=== PATIENT | female | born 1985 | race Caucasian/White ===

== ENCOUNTER → 2017-09-04 14:12 | Outpatient (CLI) | payer BC, SELFPAY ==
[2017-09-04 16:18] LABS: Basophils % 0.3 % (0.1-2.0); Eosinophils # 0.1 K/mm3 (0.0-0.4); Eosinophils % 1.7 % (0.1-12.0); Hematocrit 40.2 % (37.0-47.0); Hemoglobin 13.5 g/dL (12.2-16.2); Lymphocytes # 1.2 K/mm3 (0.7-4.5); Mean Corpuscular HGB Conc 33.5 g/dL (31.8-35.4); Mean Corpuscular Hemoglobin 30.4 pg (27.0-31.2); Mean Corpuscular Volume 90.9 fl (81-99); Mean Platelet Volume 7.6 fl (7.4-10.4); Monocytes # 0.3 K/mm3 (0.1-1.0); Monocytes % 5.5 % (1.7-9.3); Neutrophils # 4.2 K/mm3 (1.8-7.8); Neutrophils % 72.5 % (37.0-80.0); Platelet Count 243 K/mm3 (142-424); Red Blood Count 4.42 M/mm3 (4.20-5.40); Red Cell Distribution Width 12.8 % (11.5-17.5); White Blood Count 5.9 K/mm3 (4.8-10.8)
[2017-09-06 18:23] LABS: Hepatitis B Surface Antigen Negative (Negative); Hepatitis C Antibody <0.1 s/co ratio (0.0-0.9); Rapid Plasma Reagin Ab Titer Non Reactive (NonRea<1:1); Rubella Antibodies, IgG 3.88 index (Immune >0.99)
== END ==
PROVIDERS: Family Provider Nurse Practitioner Obstetrics & Gynecology; Visit Provider Nurse Practitioner Obstetrics & Gynecology
DX: Z34.90 Encounter for supervision of normal pregnancy, unspecified, unspecified trimester (principal)
CPT/HCPCS: 36415; 85025; 86592; 86762; 86850; 87340; 87380

== ENCOUNTER → 2017-09-11 13:37 | Outpatient (CLI) | payer BC, SELFPAY ==
--- NOTE | 2017-09-11 13:48 | US_ITS ---
US OB transvaginal HISTORY: Evaluate gestational age ITS.REASON: DATES ORDERING PHYSICIAN: Aleksander Esteban MD PATIENT AGE: 32 years COMPARISON: None FINDINGS: An intrauterine gestational sac is present with a pole with a crown-rump length of 4.50cm correlating to gestational age of 11w3d. heart tones are present with an FHR of 132 bpm's. The amnion and chorion have not yet fused. Adnexa: Left ovary unremarkable. Right ovary not visualized. IMPRESSION: Live intrauterine gestation at 11 weeks 3 days. Estimated due date by ultrasound is 03/30/2018
== END ==
PROVIDERS: Family Provider Nurse Practitioner Obstetrics & Gynecology; Visit Provider Nurse Practitioner Obstetrics & Gynecology
DX: O26.841 Uterine size-date discrepancy, first trimester (principal)
CPT/HCPCS: 76830

== ENCOUNTER → 2017-11-13 14:00 | Outpatient (CLI) | payer BC, SELFPAY ==
--- NOTE | 2017-11-13 14:08 | US_ITS ---
US OB /maternal detail: INDICATION: ITS.REASON: US OB Complete ORDERING PHYSICIAN: Aleksander Esteban MD PATIENT AGE: 32 years TECHNIQUE: ultrasound transabdominal scanning. COMPARISON: No previous relevant studies. FINDINGS: Single viable intrauterine gestation. Breech position Currently. Oblique. Breech position with spine is directed anteriorly Placenta: Posterior. placenta grade 1. No previa The cervix appears satisfactory. Closed and measuring 4 cm in length. Complete survey performed and was unremarkable on the submitted images as in PACS. No discrete anomalies identified on survey imaging by technologist. Active fetus.Three-vessel cord with satisfactory umbilical cord insertion. Survey of brain & ventricles. In posterior fossa unremarkable Face and neck survey unremarkable. Nasion intact Diaphragm and chest views unremarkable. 4- chamber heart imaged. Cine loop included. LVOT imaged Abdomen: Both kidneys noted and unremarkable. Stomach noted and satisfactory. Spine: Survey of the spine satisfactory with no anomalies identified nor imaged. Both arms and legs noted. Appears to be a female fetus Amniotic Fluid: Adequate. Maternal adnexa: No significant findings encountered. Measurements : Average ultrasound age 20 week 2 day... Gestational Age 20 week 3 day. Based on LMP 06/23/2017 Estimated due date by ultrasound age 803/31/2018. Estimated weight 338 g +/- 49 g BPD = 20 week 3 day OFD = 20 week 6 day HC = 20 week 0 day AC = 30 week 3 day FL = 20 week 1 day Heart Rate = 144 BPM Cerebellum = 20 week 2 day 20 Humerus = 20 week 3 day HC/AC = 1.15.(1.09-1.26.) CI = 77. % (70-86%). FL/BPD is 68%. FL/AC is 21%. IMPRESSION: 20 week 2 day average ultrasound age breech position Posterior placenta with no previa . Anatomical survey of unremarkable & WNL
== END ==
PROVIDERS: Family Provider Nurse Practitioner Obstetrics & Gynecology; PCP Nurse Practitioner Obstetrics & Gynecology; Visit Provider Nurse Practitioner Obstetrics & Gynecology
DX: Z36.0 Encounter for antenatal screening for chromosomal anomalies (principal)
CPT/HCPCS: 76811

== ENCOUNTER 2017-11-25 10:37 | Outpatient (CLI) | payer BC, SELFPAY ==
[2017-11-25 10:51] VITALS: BP 108/69; PULSE 90; RESP 18; TEMP 36.6; O2SAT 98; BMI 31.2
[2017-11-25 10:52] VITALS: BMI 31.2
[2017-11-25 11:11] LABS: Microscopic, Urine URINE MICROSCOPIC (MICROSCOPIC)
[2017-11-25 11:17] LABS: Appearance,Urine SL CLOUDY (Clear); Bilirubin,Urine Negative (Negative); Blood, Urine Negative (Negative); Color,Urine YELLOW (Yellow); Glucose,Urine (UA) Negative (Negative); Ketones,Urine Negative (Negative); Leukocyte Esterase,Urine 2+ (Negative); Nitrate,Urine Negative (Negative); Protein,Urine Negative (Negative); Specific Gravity, Urine 1.015 (1.005-1.030); Urobilinogen,Urine 0.2 EU/dl (0.2)
[2017-11-25 12:19] LABS: Bacteria,Urine 2+ /lpf
== END 2017-11-25 12:10 | disposition home or self-care (01) ==
LOC: OBOUT 10:42 → OB 10:43
PROVIDERS: PCP Nurse Practitioner Obstetrics & Gynecology; Referring Provider Nurse Practitioner Obstetrics & Gynecology; Visit Provider Nurse Practitioner Obstetrics & Gynecology
DX: O26.92 Pregnancy related conditions, unspecified, second trimester (principal); Z3A.21 21 weeks gestation of pregnancy; R10.32 Left lower quadrant pain; R60.0 Localized edema
CPT/HCPCS: 59025; 81001; 87086

== ENCOUNTER → 2018-03-05 18:03 | Outpatient (REF) | payer BC, SELFPAY | LOC: LAB 18:03 | PROVIDERS: Visit Provider Nurse Practitioner Obstetrics & Gynecology | DX: Z34.90 Encounter for supervision of normal pregnancy, unspecified, unspecified trimester (principal) | CPT/HCPCS: 86403 ==

== ENCOUNTER 2018-03-19 04:11 | Outpatient (CLI) | payer BC, SELFPAY ==
[2018-03-19 04:19] VITALS: BMI 33.6
[2018-03-19 04:33] VITALS: BP 105/69; PULSE 76; RESP 18; TEMP 36.6; O2SAT 98; BMI 33.6
[2018-03-19 04:35] LABS: Appearance,Urine CLEAR (Clear); Bilirubin,Urine Negative (Negative); Blood, Urine TRACE-L (Negative); Color,Urine YELLOW (Yellow); Glucose,Urine (UA) Negative (Negative); Ketones,Urine Negative (Negative); Leukocyte Esterase,Urine Negative (Negative); Nitrate,Urine Negative (Negative); PH,Urine 6.5 (5.0-8.5); Protein,Urine Negative (Negative); Specific Gravity, Urine 1.025 (1.005-1.030); Urobilinogen,Urine 0.2 EU/dl (0.2)
[2018-03-19 04:36] LABS: Microscopic, Urine URINE MICROSCOPIC (MICROSCOPIC)
[2018-03-19 04:41] LABS: Bacteria,Urine 1+ /lpf; Mucus,Urine 1+ /lpf; Squamous Epithelial Cell,Urine Occasional #/hpf (0-5); WBC,Urine Occasional #/hpf (0-3)
== END 2018-03-19 07:35 | disposition home or self-care (01) ==
LOC: OBOUT 04:12 → OB 04:13
PROVIDERS: Visit Provider Obstetrics & Gynecology
DX: O47.03 False labor before 37 completed weeks of gestation, third trimester (principal); Z3A.38 38 weeks gestation of pregnancy
CPT/HCPCS: 59025; 81001

== ENCOUNTER 2018-03-28 04:56 | Outpatient (CLI) | payer BC, SELFPAY ==
[2018-03-28 05:06] VITALS: BMI 34.0
[2018-03-28 05:14] LABS: Appearance,Urine CLEAR (Clear); Bilirubin,Urine Negative (Negative); Blood, Urine Negative (Negative); Color,Urine YELLOW (Yellow); Glucose,Urine (UA) Negative (Negative); Ketones,Urine Negative (Negative); Leukocyte Esterase,Urine TRACE (Negative); Microscopic, Urine URINE MICROSCOPIC (MICROSCOPIC); Nitrate,Urine Negative (Negative); PH,Urine 7.5 (5.0-8.5); Protein,Urine Negative (Negative); Specific Gravity, Urine 1.015 (1.005-1.030); Urobilinogen,Urine 0.2 EU/dl (0.2)
[2018-03-28 05:18] VITALS: BP 119/82; PULSE 69; RESP 18; TEMP 36.6; O2SAT 96; BMI 34.0
[2018-03-28 05:18] LABS: Bacteria,Urine 1+ /lpf; Squamous Epithelial Cell,Urine 20-50 #/hpf (0-5)
== END 2018-03-28 08:00 | disposition home or self-care (01) ==
LOC: OBOUT 04:58 → OB 04:59
PROVIDERS: PCP Nurse Practitioner Obstetrics & Gynecology; Visit Provider Obstetrics & Gynecology
DX: O60.03 Preterm labor without delivery, third trimester (principal); Z3A.39 39 weeks gestation of pregnancy
CPT/HCPCS: 59025; 81001

== ENCOUNTER 2018-04-04 05:23 | Inpatient (IN) ==
[2018-04-04 06:36] LABS: Amphetamine/Metha Screen,Urine Negative ng/mL (<1000); Barbiturates Screen,Urine Negative ng/mL (<200); Benzodiazepines Screen,Urine Negative ng/mL (<200); Cannabinoid Screen,Urine Negative ng/mL (<50); Cocaine Screen,Urine Negative ng/mL (<300); Methadone Screen,Urine Negative ng/mL (<300); Opiate Screen,Urine Negative ng/mL (<300); Phencyclidine Screen,Urine Negative ng/mL (<25)
[2018-04-04 06:49] LABS: Basophils % 0.3 % (0.1-2.0); Eosinophils # 0.2 K/mm3 (0.0-0.4); Eosinophils % 2.1 % (0.1-12.0); Hematocrit 34.9 % (37.0-47.0); Hemoglobin 12.1 g/dL (12.2-16.2); Lymphocytes # 2.3 K/mm3 (0.7-4.5); Lymphocytes % 29.7 K/mm3 (10-50); Mean Corpuscular HGB Conc 34.6 g/dL (31.8-35.4); Mean Corpuscular Hemoglobin 32.6 pg (27.0-31.2); Mean Corpuscular Volume 94.2 fl (81-99); Mean Platelet Volume 7.7 fl (7.4-10.4); Monocytes # 0.4 K/mm3 (0.1-1.0); Monocytes % 4.9 % (1.7-9.3); Neutrophils # 4.9 K/mm3 (1.8-7.8); Neutrophils % 62.9 % (37.0-80.0); Platelet Count 215 K/mm3 (142-424); Red Blood Count 3.71 M/mm3 (4.20-5.40); Red Cell Distribution Width 13.6 % (11.5-17.5); White Blood Count 7.7 K/mm3 (4.8-10.8)
--- NOTE | 2018-04-04 07:35 | History & Physical Report ---
OB - H&P: HPI Antepartum - History of Present Illness Chief complaint: Postterm History of present illness: She is a 32-year-old 7 para 4 aborta 2 who is 40s weeks gestational age. She has had lots of contractions that remained 4 cm. As a result of that she is admitted for augmentation of labor. She is also had decreased from the last few days. - History of Present Criteria for establishing EDC:: LMP confirmed by 1st trimester US care: good care Ultrasounds: normal 1st trimester US, normal mid trimester US Obstetrical complications: none Medical complications: none [facility] History I have reviewed the patient's past medical history: Yes Medical History: Reports:: Asthma Denies:: Anxiety, Cancer, Depression, Diabetes Mellitus Type 1, Diabetes Mellitus Type 2, Hypertension, MRSA, Seizures Other Surgeries: Yes: Hernia Repair (umbilical x2). No: Amputation: No Fractures: No - *Social History Educational Level: Completed High School Smoking Status: Never smoker Alcohol Intake: former Alcohol Intake Frequency:: other Substance Use Type: denies use Occupational Status: unemployed Household Members: spouse, children - Psychiatric History Expresses thoughts of harming self/others: None Suicide Plan Description: No Plan Pschychiatric History:: Denies:: Anxiety, Depression *Family Hx:: Cancer, Diabetes, Thyroid Disorder, Heart Attack, Stroke, Kidney Disease, Hypertension, Asthma, Coronary Artery Disease Para: 4 Review of Systems - Review of Systems Review of systems:: pertinent systems reviewed and negative unless documented below Meds Home Medications Medication Instructions Recorded Confirmed Type 1 tab PO QDAY 09/04/17 11/25/17 History vitamin,calcium,zeymngqe-biwg-mlbrf acid tablet Ferrous Sulfate 325 mg PO DAILY 11/25/17 11/25/17 History Allergies Allergy/AdvReac Type Severity Reaction Status Date / Time No Known Allergies Allergy Verified 04/02/18 10:11 OB - H&P: Exam - Physical Exam Vital signs: Pulse Resp BP 70 18 108/61 04/04/18 06:41 04/04/18 06:41 04/04/18 06:41 - Constitutional no acute distress - Routine HEENT Exam Head: Present: normocephalic Eye: Present: EOMI, PERRL ENT: Present: mucous membranes moist - Routine Neck Exam Present: supple, full ROM - Routine Respiratory Exam Absent: accessory muscle use (good air entry bilaterally), respiratory distress , wheezes, crackles - Routine Cardiovascular Exam Present: RRR. Absent: murmur - Routine Abdominal Exam Present: soft, normoactive bowel sounds. Absent: tenderness, distended, guarding - Routine Rectal Exam Patient deferred: visual exam, digital exam - Routine Exam Patient deferred: external exam, groin exam, perineal exam - Routine Extremities Exam Present: full ROM. Absent: cyanosis, edema - Routine Skin Exam Present: intact. Absent: cyanosis - Routine Neurological Exam Present: alert, oriented X3 - Routine Psychiatric Exam Present: normal affect OB - Results - Labs Labs: Short CBC 04/04/18 Range/Units 06:00 WBC 7.7 (4.8-10.8) K/mm3 Hgb 12.1 L (12.2-16.2) g/dL Hct 34.9 L (37.0-47.0) % Plt Count 215 (142-424) K/mm3 OB - A/P Antepartum (1) Normal delivery at term Current visit: Yes Status: Acute (2) Post term over 40 weeks Current visit: Yes Status: Acute - Additional Plan Planning to breastfeed?: Yes Plan: induction Additional Information:: 3-4 cm dilated has been like this for the last few weeks. She is having a few contractions. She had decreased femur cervix is 3-4 cm 75% -2. We will go ahead and start oxytocin this morning and expect a vaginal delivery.
--- NOTE | 2018-04-04 09:43 | Progress Note ---
Labor Note - Subjective: Date: 04/04/18 Time: 09:42 regular contraction - Objective: NST:: Reactive Contractions:: every 2-3 minutes Cervical Dilation:: 4 Effacement:: 75% Station: -2 Membranes: intact - Fetus: Monitoring?: Yes monitoring type:: External - Assessment: Labor progressing?: Yes Cephalopelvic disproportion?: No Patient Problems: All Active Problems Normal delivery at term (Acute) Post term over 40 weeks (Acute) (Acute) - Plan: Anesthesia for epidural?: No Continue to labor down?: Yes Plan for ?: No Continue to monitor?: Yes Start pushing?: No
--- NOTE | 2018-04-04 11:45 | Progress Note ---
Labor Note - Subjective: Date: 04/04/18 Time: 11:44 regular contraction - Objective: NST:: Reactive Contractions:: every 2-3 minutes Cervical Dilation:: 4-5 Effacement:: 90% Station: -2 Membranes: intact - Fetus: Monitoring?: Yes monitoring type:: External - Assessment: Labor progressing?: Yes Cephalopelvic disproportion?: No Patient Problems: All Active Problems Normal delivery at term (Acute) Post term over 40 weeks (Acute) (Acute) - Plan: Anesthesia for epidural?: No Continue to labor down?: Yes Plan for ?: No Continue to monitor?: Yes Start pushing?: No
--- NOTE | 2018-04-04 14:05 | Progress Note ---
Labor Note - Subjective: Date: 04/04/18 Time: 14:04 regular contraction - Objective: NST:: Reactive Contractions:: every 2-3 minutes Cervical Dilation:: 6 Effacement:: 100% Station: -2 Membranes: artificially ruptured Comment:: Clear fluid - Fetus: Monitoring?: Yes monitoring type:: Internal and External Comment:: I inserted a scalp clip - Assessment: Labor progressing?: Yes Cephalopelvic disproportion?: No Patient Problems: All Active Problems Normal delivery at term (Acute) Post term over 40 weeks (Acute) (Acute) - Plan: Anesthesia for epidural?: Yes Continue to labor down?: Yes Plan for ?: No Continue to monitor?: Yes Start pushing?: No
--- NOTE | 2018-04-04 14:10 | Progress Note ---
[facility] Anesthesia Checklist - Patient Identification Patient Identification: Arm Band, Verbal (Name & ) - Structural Data Admitted From: Inpatient Planned Operative Procedure/s: Labor Epidural Consent for Planned Operative Procedure(s) Verified: Yes Verified Documents: Surgical Consent, History and Physical - Additional verifications Patient : Yes Anesthesia Reactions: No - Airway Assessment C-Spine Mobility Assessed: Yes TMJ Mobility Assessed: Yes Dentition: Good Dentition - Neurological Assessment Level of Consciousness: Awake Hx Seizures: No Numbness or tingling in extremities: No - Anesthesia Plan Anesthesia Risk discussed: Yes Anesthesia Plan: Verified ASA Class: II Anesthesia Type: Epidural [facility] Anesthesia HX I have reviewed the patient's past medical history: Yes Medical History: Reports:: Asthma Denies:: Anxiety, Cancer, Depression, Diabetes Mellitus Type 1, Diabetes Mellitus Type 2, Hypertension, MRSA, Seizures Other Surgeries: Yes: Hernia Repair (umbilical x2). No: Amputation: No Fractures: No *Family Hx:: Cancer, Diabetes, Thyroid Disorder, Heart Attack, Stroke, Kidney Disease, Hypertension, Asthma, Coronary Artery Disease
--- NOTE | 2018-04-04 16:20 | Progress Note ---
Labor Note - Subjective: Date: 04/04/18 Time: 16:19 regular contraction - Objective: NST:: Reactive Contractions:: every 2-3 minutes Cervical Dilation:: 8 Effacement:: 100% Station: 0 Membranes: artificially ruptured - Fetus: Monitoring?: Yes monitoring type:: Internal Comment:: She already had a scalp clip and I have inserted an IUPC. - Assessment: Labor progressing?: Yes Cephalopelvic disproportion?: No Patient Problems: All Active Problems Normal delivery at term (Acute) Post term over 40 weeks (Acute) (Acute) - Plan: Anesthesia for epidural?: Yes Continue to labor down?: Yes Plan for ?: No Continue to monitor?: Yes Start pushing?: No
--- NOTE | 2018-04-04 18:07 | Procedure Note ---
- Delivery Note Delivery Date:: 04/04/18 Delivery Time:: 17:51 Anesthesia Type: Epidural Was labor medically induced?: Yes Induction method: per pitocin protocol Gestational age (weeks): 40 delivered prior to 39 weeks?: No Gender: Female at 1 minute: 9 at 5 minutes: 9 AF:: Clear fluid LAC or MLE?: LAC Delivery Procedure:: She is a 32-year-old 7 para 4 abortus 2 who was 40+5 weeks gestational age. As result of that we brought her in for induction of labor postdates. She was started on IV oxytocin and under labor epidural progress to full dilations. She delivered spontaneously a live born female child at 5:51 PM in the evening of April 04, 2018. I deliver the head the anterior shoulder then delivered followed by the rest of the body atraumatically. The baby cried spontaneously and was vigorous. We allowed the cord to continue to pulsate for 1 minute. The cord was then doubly clamped and cut and the infant was placed on the mother's abdomen for further care. The nurses assigned Apgars of 9 at 1 minute and 9 at 5 minutes. We did obtain cord blood as well as cord pH. The pH was 7.32. She weighed 8 lbs. 3 oz. and was 19-1/2 inches long. She had a small vaginal laceration that was repaired with interrupted 3-0 Vicryl repeat suture. Using gentle traction on the cord and counter traction on the fundus I was able to easily deliver the placenta intact. He had a normal three-vessel cord. She has a positive blood. She is rubella immune and was group B Streptococcus negative. She plans to breast-feed. Her computer tech is Dr. Butler. Estimated blood loss was approximately 400 cc. Laceration:: vaginal Placental Delivery Description: Spontaneous
[2018-04-05 06:42] LABS: Hematocrit 33.8 % (37.0-47.0); Hemoglobin 11.2 g/dL (12.2-16.2)
--- NOTE | 2018-04-05 10:55 | Progress Note ---
Internal Medicine - PN: Subj *Date: 04/05/18 *Time: 10:54 Interval history: She continues to do well. She is eating and drinking and ambulating. She is breast-feeding. Her lochia is normal. Exam Vital signs and Labs for Last 24 Hours: Temp Pulse Resp BP Pulse Ox 97.9 F 68 18 104/59 95 04/05/18 08:18 04/05/18 08:18 04/05/18 08:18 04/05/18 08:18 04/05/18 08:18 Laboratory Results - last 24 hr 04/04/18 18:03: Cord ABG pH 7.32 L 04/05/18 06:15: Hgb 11.2 L, Hct 33.8 L I & O for Last 24 hours: Intake & Output 04/02/18 04/03/18 04/04/18 04/05/18 11:59 11:59 11:59 11:59 Weight 202 lb - Constitutional no acute distress - *Routine HEENT Exam Head: Present: normocephalic - *Routine Neck Exam Present: supple, full ROM - *Routine Skin Exam Present: intact (good color) - Routine Psychiatric Exam Present: normal affect Assessment and Plan (1) Normal delivery at term Current visit: Yes Status: Acute Category: Medical Code(s): O80 - Encounter for full-term uncomplicated delivery (2) Post term over 40 weeks Current visit: Yes Status: Acute Category: Medical Code(s): O48.0 - Post- term - Assessment and plan all Dx Assessment and Plan for all problems:: She is doing well. We will plan to send her home tomorrow.
[2018-04-06 09:29] VITALS: BP 110/58
--- NOTE | 2018-04-06 10:23 | Discharge Summary ---
General - General Admission date:: 04/04/18 Discharge date: 04/06/18 HPI HPI: She is a 32-year-old 7 now para 5 abortus 2 who was 40 and 5 weeks gestational age. Since she was postdates we elected to induce her labor. Hospital Course Hospital Course: She was started on IV oxytocin had her membranes ruptured. She progressed in her labor epidural to full dilation and delivered spontaneously a live born female child at 5:51 PM in the afternoon of April 04, 2018. The baby weighed 8 lbs. 3 oz. and was 19-1/2 inches long. She had Apgars of 9 at 1 minute and 9 at 5 minutes. She is breast-feeding. She has a positive blood, she is rubella immune and was group B streptococcus negative. Her microbiology lab technician is Dr. Butler. Her graph she is discharged home to follow-up with me in approximately 2 weeks time. She will continue with her vitamins and iron. Objective Vital signs: Temp Pulse Resp BP Pulse Ox 97.7 F 72 17 110/58 97 04/06/18 08:00 04/06/18 08:00 04/06/18 08:00 04/06/18 08:00 04/05/18 11:30 no acute distress DS: Diagnosis - Discharge Diagnosis (1) Normal delivery at term Status: Acute (2) Post term over 40 weeks Status: Acute Discharge Plan - Patient Discharge Instructions ACTIVITY: No heavy lifting DIET: continue same diet Patient Instructions: [facility] Post Discharge Instructions - Follow up Plan Disposition: Home, Self-Longterm Medications: Home Medications Medication Instructions Recorded Confirmed Type 1 tab PO DAILY 09/04/17 04/04/18 History vitamin,calcium,lkckuocd-dbgh-ivpbi acid tablet Ferrous Sulfate 325 mg PO DAILY 11/25/17 04/04/18 History Prescriptions/Medication Reconciliation: Continue vitamin,calcium,kixwuelv-dbfe-qlchn acid tablet 1 tab PO DAILY Ferrous Sulfate 325 mg PO DAILY
== END 2018-04-06 11:45 | disposition home or self-care (01) ==
LOC: OB 05:23
PROVIDERS: ADMIT Obstetrics & Gynecology; ATTEND Nurse Practitioner Obstetrics & Gynecology

== ENCOUNTER → 2018-05-26 08:38 | Outpatient (CLI) | payer BC, SELFPAY ==
--- NOTE | 2018-05-26 08:40 | US_ITS ---
US gallbladder HISTORY: Right upper quadrant pain, nausea, vomiting, diarrhea ITS.REASON: US Gallbladder- Abdominal Pain ORDERING PHYSICIAN: Aleksander Esteban MD PATIENT AGE: 32 years Comparison: None FINDINGS: PANCREAS: Unremarkable. No obvious mass or abnormal fluid collection. No ductal dilatation LIVER: No focal liver lesions demonstrated. Homogeneous echogenicity. No intrahepatic biliary ductal dilatation evident. There is appropriate directional blood flow within a nondilated portal vein RIGHT KIDNEY: Unremarkable. Normal size and echogenicity. No hydronephrosis GALLBLADDER: No gallstones, gallbladder wall thickening, pericholecystic fluid, or biliary dilatation. IMPRESSION: Negative gallbladder/right upper quadrant ultrasound
== END ==
PROVIDERS: Family Provider Nurse Practitioner Obstetrics & Gynecology; PCP Nurse Practitioner Obstetrics & Gynecology; Visit Provider Nurse Practitioner Obstetrics & Gynecology
DX: R10.9 Unspecified abdominal pain (principal)
CPT/HCPCS: 76705

== ENCOUNTER 2020-07-11 11:51 | Emergency (ER) | payer BC, SELFPAY ==
[2020-07-11 12:30] VITALS: BP 121/81; PULSE 80; RESP 14; TEMP 36.9; O2SAT 99; BMI 25.7
--- NOTE | 2020-07-11 12:34 | HMH.EDUTC ---
[facility] [place] Impression: Bronchitis, Exposure to COVID-19 virus, Viral syndrome Disposition: Home, Self-Care Condition on Discharge: Good Instructions: Preventing the Spread of Coronavirus Discharge Instructions Additional Instructions: Drink plenty of fluids. Take tylenol or ibuprofen for pain or fever. Take the medications as directed. Follow up with your regular doctor. GO TO THE ER FOR ANY WORSENING SYMPTOMS Prescriptions: Albuterol Sulfate [Albuterol Sulfate Hfa] 2 puffs IH Q6HP PRN 30 Days #1 hfa.aer.ad PRN Reason: Shortness Of Breath Transmission Status: Received by [id number] Brompheniramine/Pseudoephed/Dm [Bromfed Dm Cough Syrup] 5 ml PO Q6HP PRN #240 syrup PRN Reason: Cough Transmission Status: Received by [facility] Azithromycin [Z-Gregorio 250mg Tab*] 250 mg PO UD DOSE PK #6 tab Transmission Status: Received by [facility] Referrals: Alecia Mendoza [Primary Care Provider] - Time of Disposition: 12:51 Medical Decision Making - Medical Records Medical records reviewed: No: I reviewed the patient's medical records. - Pasha Inquiry Pt receiving controlled substance: No Vital Signs: 07/11/20 12:30 07/11/20 13:00 Temperature 98.4 F 98.4 F Temperature Source Oral Pulse Rate 80 Pulse Rate [Right Brachial] 80 Respiratory Rate 14 14 Blood Pressure 121/81 Blood Pressure [Right Arm] 121/81 Blood Pressure Mean [Right Arm] 94 Blood Pressure Source [Right Arm] Automatic Cuff Blood Pressure Position [Right Arm] Sitting 02 Sat by Pulse Oximetry 99 Oxygen Delivery Method Room Air Orders (Tests/Meds): ORDERS Category Date Time Status Covid-19 Nasal PCR Sendout Dagoberto Routine Lab 07/11/20 12:[address] [facility] [place] - General Stated complaint: covid exposure Time Seen by Provider: 07/11/20 12:35 - History of Present Illness Provider Complaint: She states that for the past 3 days she has had cough, chest congestion, chest tightness, low grade fever, and body aches. - Related Data Previous Rx's Medication Instructions Recorded Nitrofurantoin Monohyd/M-Cryst 100 mg PO DAILY 5 Days #10 cap 08/30/19 [Macrobid 100 mg Capsule] Ondansetron [Zofran 4mg ODT] 4 mg PO Q8HP PRN #10 tab.rapdis 08/30/19 Phenazopyridine HCl [Pyridium 200 pow PO TID #6 tab 08/30/19 200mg Tablet] Albuterol Sulfate [Albuterol 2 puffs IH Q6HP PRN 30 Days #1 07/11/20 Sulfate Hfa] hfa.aer.ad Azithromycin [Z-Gregorio 250mg Tab*] 250 mg PO UD DOSE PK #6 tab 07/11/20 Brompheniramine/Pseudoephed/Dm 5 ml PO Q6HP PRN #240 syrup 07/11/20 [Bromfed Dm Cough Syrup] Allergies Allergy/AdvReac Type Severity Reaction Status Date / Time No Known Allergies Allergy Verified 05/28/18 15:11 [facility] History - Hepatitis A Screen Attestation statement:: This patient has been screened for Hepatitis A risk factors. I have reviewed the patient's past medical history: Yes Medical History: Reports:: Asthma Denies:: Anxiety, Cancer, Depression, Diabetes Mellitus Type 1, Diabetes Mellitus Type 2, Hypertension, MRSA, Seizures Other Surgeries: Yes: Hernia Repair. No: Amputation: No Fractures: No - Social History Smoking Status: Never smoker Alcohol Intake: never Alcohol Intake Frequency:: other Substance Use Type: denies use Occupational Status: unemployed Household Members: spouse, children - Psychiatric History Pschychiatric History:: Denies:: Anxiety, Depression Family Hx:: Cancer, Diabetes, Thyroid Disorder, Heart Attack, Stroke, Kidney Disease, Hypertension, Asthma, Coronary Artery Disease RESEARCH SOFTWARE ENGINEER history: no No RESEARCH SOFTWARE ENGINEER history, no Non-contributory, no Spontaneous , no Therapeutic , no Cervical Cancer, no Abnormal Uterine Bleeding, no Ovarian Cancer, no dysfunctional uterine bleed, no Endometriosis, no Ectopic , no Polycystic Ovary Syndrome, no Uterine Fibroids, no Tubal Ligation, no , no Failure
[2020-07-11 13:00] VITALS: BP 121/81; PULSE 80; RESP 14; TEMP 36.9; O2SAT 99
[2020-07-13 15:20] LABS: Covid-19 Nasal PCR Sendout Lex Positive
--- NOTE | 2020-07-13 16:00 | PC.NURSE ---
CALLED PT TO LET HER KNOW THAT HER COVID TEST WAS POSITIVE
== END 2020-07-11 13:01 | disposition home or self-care (01) ==
PROVIDERS: Emergency Provider Nurse Practitioner Family; PCP Family Medicine
DX: U07.1 COVID-19 (principal); J45.909 Unspecified asthma, uncomplicated
CPT/HCPCS: 99201; U0004

== ENCOUNTER 2021-06-12 12:00 | Emergency (ER) | payer BC, SELFPAY ==
[2021-06-12 13:45] VITALS: BP 123/56; PULSE 67; RESP 20; TEMP 36.6; O2SAT 99; BMI 33.7
[2021-06-12 14:14] LABS: UTC Strep Screen (Rapid) Positive (Negative)
--- NOTE | 2021-06-12 14:28 | HMH.EDUTC ---
[facility] [place] Impression: Strep [place] Disposition: Home, Self-Care Condition on Discharge: Good Instructions: DI for Strep Throat Additional Instructions: Drink plenty of fluids. Take tylenol or ibuprofen for pain or fever. Take the medications as directed. Follow up with your regular doctor. GO TO THE ER FOR ANY WORSENING SYMPTOMS Throw your tooth brush away and get a new one. Prescriptions: Brompheniramine/Pseudoephed/Dm [Bromfed Dm Cough Syrup] 5 ml PO Q6HP PRN #240 ml PRN Reason: Cough Transmission Status: Received by [facility] Amoxicillin [Amoxicillin 500mg Tab] 500 mg PO TID 10 Days #30 tab Transmission Status: Received by [facility] predniSONE [Deltasone 10mg tablet] 10 mg PO BID 3 Days #6 tab Transmission Status: Received by [facility] Referrals: Provider,Referral, MD [Primary Care Provider] - Time of Disposition: 14:31 Medical Decision Making - Medical Records Medical records reviewed: No: I reviewed the patient's medical records. - Pasha Inquiry Pt receiving controlled substance: No Vital Signs: 06/12/21 13:45 06/12/21 14:36 Temperature 97.9 F 97.9 F Temperature Source Oral Pulse Rate 67 Pulse Rate [Right Brachial] 67 Respiratory Rate 20 20 Blood Pressure 123/56 L Blood Pressure [Right Arm] 123/56 L Blood Pressure Mean [Right Arm] 78 Blood Pressure Source [Right Arm] Automatic Cuff Blood Pressure Position [Right Arm] Sitting 02 Sat by Pulse Oximetry 99 Oxygen Delivery Method Room Air - Lab Data Lab results reviewed: Yes: I reviewed the patient's lab results. Lab Results 06/12/21 14:12: Strep Scn Rapid Clinic Positive A [facility] [place] - General Stated complaint: exposure to strep, symptoms Time Seen by Provider: 06/12/21 14:28 Mode of Arrival: Ambulatory Source of Information: Patient Limitations: No Limitations Description of Symptoms (Recalled from Triage Doc. by RN): PATIENT C/O COUGH, SORE THROAT AND BODY ACHES SINCE SATURDAY HEENT Symptoms (Recalled from RN notes): Yes Resp Symptoms (Recalled from RN notes): Yes Skin Symptoms (Recalled from RN notes): No MS Symptoms (Recalled from RN notes): No Functional Status (Recalled from RN notes): WNL - History of Present Illness Provider Complaint: She c/o sore throat for the past 2 days. - Related Data Previous Rx's Medication Instructions Recorded Amoxicillin [Amoxicillin 500mg Tab] 500 mg PO TID 10 Days #30 tab 06/12/21 Brompheniramine/Pseudoephed/Dm 5 ml PO Q6HP PRN #240 ml 06/12/21 [Bromfed Dm Cough Syrup] predniSONE [Deltasone 10mg tablet] 10 mg PO BID 3 Days #6 tab 06/12/21 Allergies Allergy/AdvReac Type Severity Reaction Status Date / Time No Known Allergies Allergy Verified 05/28/18 15:11 - Worker's Comp Is this a Worker's Comp case?: No [facility] History - Hepatitis A Screen Drug use history?: No High risk sexual behaviors?: No History of sexually transmitted infection?: No Currently employed?: No Childcare worker?: No Do you have indoor plumbing?: Yes Do you have electricity?: Yes Attestation statement:: This patient has been screened for Hepatitis A risk factors. I have reviewed the patient's past medical history: Yes Medical History: Reports:: Asthma Denies:: Anxiety, Cancer, Depression, Diabetes Mellitus Type 1, Diabetes Mellitus Type 2, Hypertension, MRSA, Seizures Other Surgeries: Yes: Hernia Repair. No: Amputation: No Fractures: No - Social History Smoking Status: Never smoker Alcohol Intake: never Alcohol Intake Frequency:: other Substance Use Type: denies use Occupational Status: other Household Members: spouse, children - Psychiatric History Pschychiatric History:: Denies:: Anxiety, Depression Family Hx:: Cancer, Diabetes, Thyroid Disorder, Heart Attack, Stroke, Kidney Disease, Hypertension, Asthma, Coronary Artery Disease WELDER SETTER RESISTANCE MACHINE history: no No WELDER SETTER RESISTANCE MACHINE history, no Non-contributory, no
[2021-06-12 14:36] VITALS: BP 123/56; PULSE 67; RESP 20; TEMP 36.6; O2SAT 99
== END 2021-06-12 14:40 | disposition home or self-care (01) ==
PROVIDERS: Emergency Provider Nurse Practitioner Family
DX: J02.0 Streptococcal pharyngitis (principal); J45.909 Unspecified asthma, uncomplicated
CPT/HCPCS: 87880; 99202; G0463

== ENCOUNTER → 2023-01-02 09:46 | Outpatient (CLI) | payer BC, SELFPAY | LOC: RT 09:49 | PROVIDERS: PCP Nurse Practitioner Family; Visit Provider Nurse Practitioner Family | DX: J45.909 Unspecified asthma, uncomplicated (principal) | CPT/HCPCS: 94010 ==

== ENCOUNTER 2023-01-09 21:34 | Emergency (ER) | payer BC, SELFPAY ==
[2023-01-09 21:44] VITALS: BMI 32.5
--- NOTE | 2023-01-09 21:45 | XR_ITS ---
PROCEDURE INFORMATION: Exam: XR Left Knee Exam date and time: 01/09/2023 9:46 PM Age: 37 years old Clinical indication: Pain; Knee; Additional info: Possible dislocation of knee while standing TECHNIQUE: Imaging protocol: Radiologic exam of the left knee. Views: 3 views. COMPARISON: No relevant prior studies available. FINDINGS: Bones/joints: Mild tricompartmental osteoarthrosis. No acute fracture or dislocation. Soft tissues: Normal. IMPRESSION: No acute fracture or dislocation.
--- NOTE | 2023-01-09 21:46 | XR_ITS ---
PROCEDURE INFORMATION: Exam: XR Left Tibia and Fibula Exam date and time: 01/09/2023 9:45 PM Age: 37 years old Clinical indication: Pain; Knee; Additional info: R/O knee dislocation TECHNIQUE: Imaging protocol: Radiologic exam of the left tibia and fibula. Views: 2 views. COMPARISON: No relevant prior studies available. FINDINGS: Bones/joints: No acute fracture or dislocation. Soft tissues: Normal. IMPRESSION: No acute fracture or dislocation.
[2023-01-09 21:47] VITALS: BP 138/85; PULSE 94; RESP 19; TEMP 36.4; O2SAT 100; BMI 32.5
--- NOTE | 2023-01-09 23:23 | HMH.EDLOEX ---
Discharge Plan Disposition Patient Disposition: Home, Self-Care Chief Complaint: Extremity Injury, Lower Prescriptions Prescriptions: No Action prednisone 10 MG tablet 10 mg PO BID 3 Days Qty: 6 0RF amoxicillin 500 MG tablet 500 mg PO TID 10 Days Qty: 30 0RF jhgfizynxynzihr-kvtxkufin-WP 118 ML syrup 5 ml PO Q6HP PRN (Reason: Cough) Qty: 240 0RF Referrals Follow up/Referrals: Ashlie Reynolds APRN [Primary Care Provider] - See instructions Andre Pérez DO [Staff Physician] - See instructions Clinical Impressions Clinical Impression: Injury of knee, Patellar displacement Instructions Patient Instructions: DI for Patellar Dislocation Discharge ED Provider: Deann (ED)Yobany Lower Extremity Injury HPI General Chief Complaint: Extremity Injury, Lower Stated Complaint: AO 01/09 @ 2115 L knee pain and swollen Time Seen by Provider: 01/09/23 23:23 Mode of Arrival: Family Vehicle Source of Information: Patient and Medical Record Limitations: No Limitations Description of Symptoms (Recalled from ER Triage Doc. by RN): 37 yo female presents with CC of left kneecap dislocated itself without injury or provocation. States she was standing against a car when she felt the knee come out of place History of Present Illness HPI Narrative: acute injury to lt lower leg with possible kneecap out of place - but thinks it spont resolved but has pain complaint: knee injury Onset (ago): hour(s) Injury: Left: knee Type of Injury: hyperflexion Place: home Severity: moderate Exacerbating factors: weight bearing Context: fall Associated symptoms: able to partially bear weight Other symptoms: none Treatments prior to arrival: cold therapy Related Data Previous Rx's Medication Instructions Recorded amoxicillin 500 mg tablet 500 mg PO TID 10 days #30 tabs 06/12/21 twdjstbhlzvkkvc-itqwvasapfrxrio-HK 5 ml PO Q6HP PRN Cough #240 mL 06/12/21 2 mg-30 mg-10 mg/5 mL oral syrup prednisone 10 mg tablet 10 mg PO BID 3 days #6 tabs 06/12/21 Allergies Allergy/AdvReac Type Severity Reaction Status Date / Time No Known Allergies Allergy Verified 05/28/18 15:11 [facility] Disclaimer: The information contained in this section may have been updated after the patient was seen, as this information can be updated by other users. Social History Smoking Status: Never smoker second hand exposure: Yes alcohol intake: never substance use type: denies use current occupational status: other Travel in the last 8 weeks: None household members: spouse and children current occupational exposures/hazards: No ROS Obtained: Yes All systems reviewed & no additional complaints except as documented Physical Exam General General appearance: alert Head Head exam: normocephalic Eye Eye exam: Present PERRL and EOMI ENT ENT exam: Present mucous membranes moist Neck Neck exam: Present trachea midline Respiratory Respiratory exam: Absent respiratory distress Cardiovascular Cardiovascular exam: Present regular rate Extremities Exam Extremities exam: Absent calf tenderness Expanded Lower Extremity Exam Left: Knee exam: Present tenderness, swelling and knee extension intact; Absent full ROM or deformity Neurovascular/Tendon exam: Absent pulse deficit or motor deficit Gait: not tested/not observed Neurological Exam Neurological exam: Present alert, oriented X3 and CN II-XII intact; Absent motor sensory deficit Psychiatric Psychiatric exam: Present normal affect Skin Skin exam: Absent rash Medical Decision Making Medical Records Medical records reviewed: Yes I reviewed the patient's medical records. Pasha Inquiry Pt receiving controlled substance: No Vital Signs: 01/09/23 21:47 Temperature 97.6 F Temperature Source Oral Pulse Rate [Right Brachial] 94 H Respiratory Rate 19 Blood Pressure [Right Arm] 138/85 Blood Pressure Mean [Right Arm] 102 Blood Pressure Source [Right
[2023-01-09 23:31] VITALS: BP 121/75; PULSE 73; RESP 19; TEMP 36.7; O2SAT 98
== END 2023-01-10 00:07 | disposition home or self-care (01) ==
PROVIDERS: Emergency Provider Emergency Medicine; PCP Nurse Practitioner Family
DX: S89.90XA Unspecified injury of unspecified lower leg, initial encounter (principal); X58.XXXA Exposure to other specified factors, initial encounter
CPT/HCPCS: 73562; 73590; 99283; 99284

== ENCOUNTER 2023-01-18 10:11 | Outpatient (RCR) | payer BC, SELFPAY | END 2023-01-18 11:15 | disposition home or self-care (01) | LOC: PT 10:11 | PROVIDERS: Visit Provider Orthopaedic Surgery | DX: S83.005A Unspecified dislocation of left patella, initial encounter (principal) | CPT/HCPCS: 97760 ==

== ENCOUNTER → 2023-01-25 09:51 | Outpatient (CLI) | payer BC, SELFPAY ==
--- NOTE | 2023-01-25 09:51 | MR_ITS ---
FINAL REPORT CLINICAL HISTORY: knee pain. DISLOCATED PATELLA. MEDIAL SIDED KNEE PAIN FINDINGS: Multiplanar MR imaging of the left knee was performed without contrast. The medial and lateral menisci are intact without evidence of meniscal tear. The anterior and posterior cruciate ligaments are intact. The medial collateral ligament and lateral ligamentous complex are intact. The patellar and quadriceps tendons are intact. There is bone bruising in the lateral aspect of the lateral femoral condyle and inferomedial patella consistent with sequela of transient lateral patellar dislocation. There is a tear at the femoral attachment of the medial patellofemoral ligament. There is also bone bruising/marrow edema in the medial aspect of the medial femoral condyle. No focal abnormality is identified of the articular cartilage. Moderate joint effusion is seen. The musculature is intact. Small popliteal cyst is identified. IMPRESSION: Findings consistent with sequela of transient lateral patellar dislocation. Tear of the medial patellofemoral ligament. Reviewed, Interpreted and Dictated by Tom Carrera III, MD Transcribed by Symone Valdez Authenticated and . [facility]
== END ==
PROVIDERS: PCP Nurse Practitioner Family; Visit Provider Orthopaedic Surgery
DX: S83.005A Unspecified dislocation of left patella, initial encounter (principal); S89.92XA Unspecified injury of left lower leg, initial encounter
CPT/HCPCS: 73721

== ENCOUNTER → 2023-03-19 10:36 | Outpatient (CLI) | payer BC, SELFPAY | PROVIDERS: PCP Nurse Practitioner Family; Visit Provider Specialist | DX: G47.30 Sleep apnea, unspecified (principal); R06.83 Snoring | CPT/HCPCS: G0399 ==

== ENCOUNTER 2023-03-29 11:00 | Outpatient (RCR) | payer BC, SELFPAY ==
--- NOTE | 2023-02-01 12:12 | HMH.PTOPEV ---
PT Outpatient Evaluation Rehab PT Outpatient Evaluation Start: 02/01/23 10:58 Freq: Status: Active Protocol: Document 02/01/23 11:57 BRITTNEY (Rec: 02/01/23 12:11 BRITTNEY [id number]) E-signed By Raymond Gu, PT Outpatient Therapy Subjective History Subjective History Patient is a 37 year old female presenting to outpatient PT with reports of acute L knee pain after a slip and fall causing lateral dislocation of the L patella. Most recent imaging indicates L MPFL rupture. Patient reports that her patella stayed in a dislocated state for approx 3 minutes before popping back in. Patient ambulates with RW and L knee immobilizer into clinic. Reviewed proper use and fitting of lateral stabilizer knee brace. No other comorbidities to report. Chief Complaint Pain,Stiff,Swelling,Weakness Symptom Type Throb Symptoms Relieved By Rest/Positioning,Ice,OTC Meds Symptoms Aggravated By Standing,Physical Activity, Walking Prior Functional Limitations None Current Functional Limitations Housework,Driving,Standing, Squatting,Recreation Activity, Walking,Stairs,Balance Symptom Description Constant but Variable Level of pain today (0-10) 3 Pain scale - at its best (0-10) 2 Pain scale - at its worst (0-10) 7 Hip/Knee Eval Gait Observation General Gait Pattern Observation Antalgic Gait,Decrease Weight Bear (L) Assistive Device Assistive Devices Rolling / Wheeled Walker Palpation Tenderness left Knee Palpation Finding Tenderness Knee Palpation Overall Comment MJL 2/4 MMT Hip Strength Reason Not Measured Orthopedic Precautions Knee Strength Reason Not Measured Orthopedic Precautions ROM Hip ROM Reason Not Measured Within Functional Limits Knee Extension Active Range of Motion ( -2 degrees) Knee Extension Passive Range of Motion ( 0 degrees) Knee Flexion Active Range of Motion ( 58 degrees) Knee Flexion Passive Range of Motion ( 60 degrees) Special Tests Knee Anterior Leatha Test Negative Left Knee Valgus Stress Test Negative Left Knee Varus Stress Test Negative Lef
--- NOTE | 2023-03-06 10:42 | HMH.RHREAS ---
Rehab Reassessment Rehab OP Re-assessment Start: 02/01/23 10:58 Freq: Status: Active Protocol: Document 03/06/23 10:37 BRITTNEY (Rec: 03/06/23 10:41 KIAMERON [id number]) E-signed By Raymond Gu, PT Rehab Re-assessment Subjective Subjective Patient reports 70% improvement since start of care. Objective Objective Notes AROM: -3-123 MMT: WNL except for hip ext and abd 4+/5 Pain: currently 2/10; 4/10 at worst over past week Neuro: WNL Special tests: neg Assessment Progress Assessment Progressing as Expected Assessment Notes Patient would benefit from continuing with skilled PT services in order to address functional limitations with prolonged standing/walking, recreational and household activities. Patient goals met STG's Goals Not Met LTGs' Revised Goals NA Plan Plan Continue with current POC. Frequency of Therapy 2x/week Duration of therapy 4 weeks Time and Billing Re-Eval Time 14 Re-Eval Billing Units 1 PHYSICIAN CERTIFICATION: I certify the specified therapy services for Anjali Franklin are required, authorized, and reviewed every 30 days.
== END 2023-03-29 12:10 | disposition home or self-care (01) ==
LOC: PT 11:00
PROVIDERS: PCP Nurse Practitioner Family; Visit Provider Orthopaedic Surgery
DX: M25.562 Pain in left knee (principal); S83.005A Unspecified dislocation of left patella, initial encounter
CPT/HCPCS: 97010; 97014; 97110; 97163; 97164; 97530; G0283

== ENCOUNTER → 2023-06-24 20:30 | Outpatient (CLI) | payer BC, SELFPAY | LOC: SL 20:33 | PROVIDERS: PCP Nurse Practitioner Family; Visit Provider Nurse Practitioner Family | DX: G47.30 Sleep apnea, unspecified (principal); R06.83 Snoring; R53.83 Other fatigue; E66.9 Obesity, unspecified; Z68.31 Body mass index [BMI] 31.0-31.9, adult | CPT/HCPCS: 95810 ==

== ENCOUNTER 2025-01-19 14:33 | Outpatient (CLI) | payer BC, SELFPAY ==
--- OUTSIDE RECORDS SUMMARY | 2025-01-19 14:37 | XMS_ITS | Clinical Summary ---
Author Organization [facility] Address [address] [place] [address] Phone Care Team Providers Care Executive Chairman Of The Board Name Role Phone Ashlie Reynolds APRN Primary Care Provider [phone] Allergies Active Allergy Reactions Criticality Noted Date Comments Ringer's Solution,Lactated Other (See Comments) High 07/19/2023 Alpha-gal syndrome. Cannot have lactated ringers Medications loratadine (CLARITIN) 10 mg tablet Take 10 mg by mouth daily. Active albuterol (PROVENTIL HFA;VENTOLIN HFA) 90 mcg/actuation inhaler Inhale 2 Puffs into the lungs every 6 hours as needed. Active fluticasone (FLOVENT) 44 mcg/actuation inhaler Inhale 2 Puffs into the lungs 2 times daily. Active QVAR REDIHALER 40 mcg/actuation Inhl HFA Aerosol Breath Activated Inhale 2 Puffs into the lungs 2 times daily. 3 Active montelukast (SINGULAIR) 10 mg Oral Tablet 3 Active levocetirizine (XYZAL) 5 mg Oral Tablet Take 5 mg by mouth every evening. Active sodium,potassium ,mag sulfates (SUPREP BOWEL PREP KIT) 17.5-3.13-1.6 gram Oral Recon SolnIndications: Irregular bowel habits,Functiona l diarrhea,Chronic idiopathic constipation Take 1 kit per physician instructions 354 mL 3 Active Additional Information Patient not taking.Reason: Therapy Completed, Reported on 09/27/2023 BREYNA 160-4.5 mcg/actuation Inhl HFA Aerosol Inhaler INHALE 2 PUFFS BY MOUTH TWICE DAILY DIRECTED RINSE MOUTH AFTER USE 4 Active Active Problems Problem Noted Date Diagnosed Date Bronchitis 07/24/2023 Ventral hernia Immunizations Immunization Administration Dates Next Due DT 05/06/2010 Surgical History Surgery Date Site/Laterality Comments VENTRAL HERNIA REPAIR 01/31/2012 N/A Incarcerated ventral hernia repair with mesh with ambit; Surgeon: Alton Hong MD; Location: [facility]; Service: General Medical devices from this surgery are in the Medical Devices section. Medical History Medical History Date Comments Asthma ZIMMER (dyspnea on exertion) Bronchitis chronic 6 months ago Headache(784.0) Syncope and collapse Motion sickness Family History Medical History Relation Name Comments Cancer Maternal Grandfather Colon Cancer Maternal Grandfather Cancer Maternal Grandmother Diabetes Maternal Grandmother Kidney Disease Maternal Grandmother Cancer Paternal Grandfather Relation Name Status Comments Maternal Grandfather Maternal Grandmother Paternal Grandfather Alive Social History Tobacco Use Types Packs/Day Years Used Date Smoking Tobacco: Never Smokeless Tobacco: Never Tobacco Cessation:Counseling Given: Not Answered Alcohol Use Standard Drinks/Week Comments No 0 (1 standard drink = 0.6 oz pur e alcohol) Comments No Sex and Gender Information Value Date Recorded Sex Assigned at Not on file Legal Sex Female 1:43 AM EDT Gender Identity Not on file Sexual Orientation Not on file Obstetrics History Last Filed Vital Signs Vital Sign Reading Time Taken Comments Blood Pressure 117/71 09/27/2023 2:30 PM EST Pulse 50 09/27/2023 2:30 PM EST Temperature 36.7 C (98.1 F) 09/27/2023 12:29 PM EST Respiratory Rate 18 09/27/2023 2:30 PM EST Oxygen Saturation 100% 09/27/2023 2:30 PM EST Inhaled Oxygen Concentration - - Weight 75.3 kg (166 lb) 09/27/2023 12:29 PM EST Height 162.6 cm (5' 4 ) 09/27/2023 12:29 PM EST Body Mass Index 28.49 09/27/2023 12:29 PM EST Plan of Treatment Health Maintenance Due Date Last Done Comments Annual Wellness Exam 1989 Hepatitis B Vaccine (1 of 3 - 19+ 3-dose series) 2005 Cervical Cancer Screening 2007 Pap Smear 2007 HPV/Pap Cotest 2016 DTaP/TDaP/Td (2 - Tdap) 05/06/2020 05/06/2010 COVID-19 Vaccine ( - 2023-2 5 season) 2024 Influenza Vaccine (Season Ended) 2025 Meningococcal B Vaccine Aged Out No l onger eligible based on patient's age to complete this topic Pneumococcal Vaccine 0-49 Aged Out No longer eligible based on patient's age to complete this topic Medical Devices Implanted Type Area Order Entry Administrator Device Identifier Shelf Expiration Date Model / Serial / Lot Mesh Ventralex Med [place] [id number] - [id number] Implanted:Qty: 1 on 01/31/2012 by Alton Hong MD at [facility] Mesh N/A: Abdomen CR BARD:DAVOL 11/10/2016 [id number] / / [id number] [facility] Care Teams Executive Chairman Of The Board Relationship Specialty Start Date End Date Ashlie Reynolds APRN [address] [place], [place] [phone] PCP - General Nurse Practitioner-Family 09/27/23
--- OUTSIDE RECORDS SUMMARY | 2025-01-19 14:37 | XMS_ITS | Clinical Summary ---
Author Organization [facility] Address [address] [place] [address] Care Team Providers Care Business Controller Name Role Phone Unavailable Primary Care Provider Unavailabl e Family History Medical History Relation Name Comments Depression Father Conversions - Other Maternal Grandfather Cancer of unknown origin Kidney failure Maternal Grandfather Leukemia Maternal Grandmother Conversions - Other Mother fatty li jian Hypertension Mother Prostate cancer Other Relation Name Status Comments Father Maternal Grandfather Maternal Grandmother Mother Other Social History Tobacco Use Types Packs/Day Years Used Date Smoking Tobacco: Never Comments Unknown Sex and Gender Information Value Date Recorded Sex Assigned at Not on file Legal Sex Female 6:23 PM EDT Gender Identity Not on file Sexual Orientation Not on file Last Filed Vital Signs Vital Sign Reading Time Taken Comments Blood Pressure 122/72 01/19/2019 1:07 PM EDT Pulse 56 01/19/2019 1:07 PM EDT Temperature - - Respiratory Rate - - Oxygen Saturation - - Inhaled Oxygen Concentration - - Weight 69.8 kg (153 lb 14.1 oz) 01/19/2019 1:07 PM EDT Height 162.6 cm (5' 4 ) 01/19/2019 1:07 PM EDT Body Mass Index 26.41 01/19/2019 1:07 PM EDT Plan of Treatment Health Maintenance Due Date Last Done Comments [facility]-Depression Screening 1986 [facility]-Infant/Child/Adol SDOH Screenings 1986 [facility]-Varicella Vaccines (1 of 2 - 13+ 2-dose series) 1999 HPV Vaccines (1 - 3-dose series) 2001 [facility]- SDOH Screenings 2004 [facility]-Adult SDOH Screenings 2004 [facility]-DTaP,Tdap,and Td Vaccine s (1 - Tdap) 2005 [facility]-Hepatitis B Vaccines (1 of 3 - 19+ 3-dose series) 2005 [facility]-Pap Smear 2007 [facility]-Cervical Cancer Screening 2016 [facility]-HPV/Cotest 2016 [id number] Vaccine ( 24-25 season) 2024 [facility]-Influenza Vaccine (Seaso n Ended) 2025 [facility]-Zoster Vaccines (1 of 2) 2036 [facility]-HIB Vaccines Aged Out No longer e ligible based on patient's age to complete this topic [facility]-Hepatitis A Vaccines Aged Out No longer eligible based on patient's age to complete this topic [facility]-IPV Vaccines Aged Out No longer e ligible based on patient's age to complete this topic [facility]-Pneumococcal Vaccine: Pediatrics (0 to 5 Years) and At-Risk Patients (6 to 49 Years) Aged Out No long er eligible based on patient's age to complete this topic [facility]-Rotavirus Vaccines Aged Out No lo nger eligible based on patient's age to complete this topic
[2025-01-19 15:11] LABS: Coronavirus 19, PCR Not Detected (NotDetected); Influenza A, PCR Not Detected (NotDetected); Influenza B, PCR Not Detected (NotDetected)
--- NOTE | 2025-01-19 15:24 | XR_ITS ---
FINAL REPORT CLINICAL HISTORY: dizziness, sob, cough FINDINGS: 2 views of the chest were obtained . There is a stimulator device in the right hemithorax. The heart is normal in size. The mediastinum is within normal limits. The lungs are clear. There is no pneumothorax. Osseous structures are unremarkable. IMPRESSION: No acute cardiopulmonary process. Reviewed, Interpreted and Dictated by Valeriano Bhardwaj MD Transcribed by Elida Meier Authenticated and . [facility]
[2025-01-19 16:02] LABS: NT Pro Brain Natriuretic Pep. 59.1 pg/mL (0-125)
[2025-01-19 16:11] LABS: Troponin I < 0.01 ng/ml (0.00-0.034)
== END 2025-01-19 23:59 | disposition home or self-care (01) ==
LOC: LAB 14:34
PROVIDERS: PCP Nurse Practitioner Family; Visit Provider Nurse Practitioner Family
DX: R42 Dizziness and giddiness (principal); R68.83 Chills (without fever); R53.83 Other fatigue
CPT/HCPCS: 36415; 71046; 83880; 84484; 87636; 93270

== ENCOUNTER 2025-02-04 09:51 | Outpatient (CLI) | payer BC, SELFPAY ==
--- OUTSIDE RECORDS SUMMARY | 2025-02-04 09:54 | XMS_ITS | Clinical Summary ---
Author Organization [facility] Address [address] [place] [address] Care Team Providers Care Director Of Product Marketing Name Role Phone Unavailable Primary Care Provider [...] 2007 [facility]-Cervical Cancer Screening 2016 [facility]-HPV/Cotest 2016 [id number] Vaccine ( 24-25 season) 2024 [facility]-Influenza Vaccine [...]
--- OUTSIDE RECORDS SUMMARY | 2025-02-04 09:54 | XMS_ITS | Clinical Summary ---
Author Organization [facility] Address [address] [place] [address] Phone Care Team Providers Care Motor Polarizer Name Role Phone Ashlie Reynolds APRN Primary Care Provider [phone] Allergies Active Allergy Reactions Criticality Noted Date [...] this topic Medical Devices Implanted Type Area Medical Lab Specialist Device Identifier Shelf Expiration Date Model / Serial / Lot Mesh Ventralex Med [place] [id number] - [id number] Implanted:Qty: 1 on 01/31/2012 by Alton Hong MD at [facility] Mesh N/A: Abdomen CR BARD:DAVOL 11/10/2016 [id number] / / [id number] [facility] Care Teams Motor Polarizer Relationship Specialty Start Date End Date Ashlie Reynolds APRN [address] [place], [place] [phone] PCP - General Nurse Practitioner-Family 09/27/23
--- NOTE | 2025-02-04 10:00 | CA_ITS ---
APPROVED REPORT EXAM: Comprehensive 2D, Doppler, and color-flow Echocardiogram Software Installer: Siri Garcia RT(R) Ht: 5 ft 4 in Wt: 170lbs BSA: 1.83 BP: 120/76 mmHg Indications: hypotension, dizziness 2D Dimensions Left Atrium 3.30 cm F: 2.7 - 3.8 LVEF (Elias's) 56.30 % F: 54 - 74 LVOT 1.86 cm (M/F) 1.5-2.5 LV Volume 84.90 mL F: 46 - 106 LV Volume Index 46.4 mL/m2 F: 29 - 61 LA Volume 21.30 mL LA Volume Index 11.64 mL/m2 (M/F) 16-34 EF AP4 53.70 % EF AP2 56.8 % EF BP 56.3 % GL Strain -18.8 % M-Mode Dimensions RVDd 2.65 cm (0.9-2.6) LVDd 4.69 cm (3.5-5.7) Ao Diam 2.46 cm (2.0-3.7) LVDs 3.49 cm (3.5-5.7) IVSd 0.44 cm (0.6-1.1) PWd 0.54 cm (0.6-1.1) EF (Teich) 50.40% FS 25.60% EDV (Teich) 101.90 mL ESV (Teich) 50.50 mL LV Diastology E Decel Time 150 (160-240 msec) E/A Ratio 1.4 MED E' 16.2 (>= 7 cm/sec) E'/MED E' Ratio 4.95 (<= 14) LAT E' 21.0 (>= 10 cm/sec) E/LAT E' Ratio 3.82 (<= 14) Mitral Valve MV E Max Jefry. 80.0 (40-130 cm/s) MV A Velocity 57.0 (40-130 cm/s) E/A Ratio 1.41 MV Decel. Time 150 (160-240 ms) Left Ventricle The left ventricle is normal size. The left ventricular systolic function is normal. The left ventricular ejection fraction is within the normal range. There is normal left ventricular wall thickness. There is normal LV segmental wall motion. The left ventricular diastolic function is normal. LVEF is 55%. Right Ventricle The right ventricle is normal size. The right ventricular systolic function is normal. Atria The left atrium size is normal. The right atrium size is normal. There is no Doppler evidence of interatrial shunt. Aortic Valve The aortic valve opens well. There is no aortic valvular stenosis. No aortic regurgitation is present. Mitral Valve The mitral valve is normal in structure. No evidence of mitral valve stenosis. Trace mitral regurgitation. Tricuspid Valve Tricuspid valve is grossly normal in structure and function. Trace tricuspid regurgitation. There is insufficient TR jet to estimate RVSP. Pulmonic Valve The pulmonary valve is normal in structure. Trace pulmonic regurgitation. Great Vessels The aortic root is normal in size. IVC is normal in size and collapses >50% with inspiration. Pericardium There is no pericardial effusion. Other Information Study Quality: Adequate Conclusion Normal biventricular systolic function. No significant valvular stenosis or regurgitation. Electronically signed by : Shahana Rivear MD 02/10/2025 00:31:46
--- NOTE | 2025-02-04 11:00 | CA_ITS ---
APPROVED REPORT Exam: Exercise Treadmill Technologist: Etelvina Diaz Ht: 5 ft 4 in Wt: 167 lbs BSA: 1.81 m2 Medical History Medications: Qvar, epinephrine, famotidine, levocetirizine, montekulast. Stress Test Details Test: Exercise stress testing was performed using a Sabas protocol. HR Resting HR: 55 bpm Max Heart Rate (APMHR): 182.760511 bpm Max HR Achieved: 178 bpm Target HR (85% APMHR): 154.012174 bpm % of APMHR: 97.80 Recovery HR: 83 bpm BP Resting BP: 131.0/62.0 mmHg Max BP: 150.0/88.0 mmHg Recovery BP: 144.0/82.0 mmHg ECG Resting ECG: NSR Clinical Highest Stage Achieved: III Stress ECG Conclusion 7 min 35 seconds Max HR: 178 % of PM: 100% METs: 9.8 Test stopped due to: SOA, dizziness. Symptoms: No CP, (+) Heartburn. Arrhythmias/Ectopy: Rare PVC. ST-T Changes: Artifact during stress. <1.5mm ST Segment changes in recovery. Conclusion: Non Diagnostic due motion artifact during stress. Target HR surpassed. EKG in recovery without acute changes. Electronically signed by : Shahana Rivera MD 02/06/2025 00:12:07
== END 2025-02-04 23:59 | disposition home or self-care (01) ==
LOC: RT 09:51
PROVIDERS: PCP Nurse Practitioner Family; Visit Provider Nurse Practitioner Family
DX: I95.9 Hypotension, unspecified (principal); R94.31 Abnormal electrocardiogram [ECG] [EKG]
CPT/HCPCS: 93017; 93018; 93306

== ENCOUNTER 2025-02-23 09:05 | Outpatient (CLI) | payer BC, SELFPAY ==
--- OUTSIDE RECORDS SUMMARY | 2025-02-23 09:08 | XMS_ITS | Clinical Summary ---
Author Organization [facility] Address [address] [place] [address] Phone Care Team Providers Care Thermal Cutter Hand Name Role Phone Ashlie Reynolds APRN Primary Care Provider [phone] Allergies Active Allergy Reactions Criticality Noted Date [...] (2 - Tdap) 05/06/2020 05/06/2010 COVID-19 Vaccine (1 - 2023-2 5 season) 2024 Influenza Vaccine (#1) 2025 Meningococcal B Vaccine Aged Out No l onger eligible based on patient's age to complete this topic Pneumococcal Vaccine 0-49 Aged Out No longer eligible based on patient's age to complete this topic Medical Devices Implanted Type Area Grain Broker And Market Operator Device Identifier Shelf Expiration Date Model / Serial / Lot Mesh Ventralex Med [place] [id number] - [id number] Implanted:Qty: 1 on 01/31/2012 by Alton Hong MD at [facility] Mesh N/A: Abdomen CR BARD:DAVOL 11/10/2016 [id number] / / [id number] [facility] Care Teams Thermal Cutter Hand Relationship Specialty Start Date End Date Ashlie Reynolds APRN [address] [place], [place] [phone] PCP - General Nurse Practitioner-Family 09/27/23
--- OUTSIDE RECORDS SUMMARY | 2025-02-23 09:08 | XMS_ITS | Clinical Summary ---
Author Organization [facility] Address [address] [place] [address] Care Team Providers Care Chemical Radiation Technician Name Role Phone Unavailable Primary Care Provider [...] 2007 [facility]-Cervical Cancer Screening 2016 [facility]-HPV/Cotest 2016 [id number] Vaccine ( 24-25 season) 2024 [facility]-Influenza Vaccine (#1) 2025 [facility]-Zoster Vaccines (1 of 2) 2036 [...]
[2025-02-23 09:31] VITALS: BMI 28.6
[2025-02-23 09:41] VITALS: BP 139/80; PULSE 55; RESP 18; TEMP 36.3; O2SAT 96
[2025-02-23 09:55] LABS: Chloride 100 mmol/L (98-107); Potassium 3.9 mmoL/L (3.5-5.1); Sodium 137 mmol/L (136-145)
[2025-02-23 09:58] LABS: Anion Gap 11.9 mEq/L (5-15); Blood Urea Nitrogen 14 mg/dl (7-17); Calcium 9.1 mg/dl (8.4-10.2); Carbon Dioxide 29 mmol/L (22.0-30.0); Creatinine Clearance Estimated 101 mL/min (50-200); Creatinine,Serum 0.90 mg/dl (0.52-1.04); Estimated Glomerular Filt Rate 70 ml/min (>60); GFR (African American) 85 ML/MIN (>60); Glucose 90 mg/dl (74-100)
--- NOTE | 2025-02-23 10:00 | CT_ITS ---
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 A noncontrast coronary calcium scan was performed. A CT attenuation threshold of 130 Hounsfield units (HU) was used for the detection of calcium in contiguous voxels of 1 sq mm in area to be counted as individual lesions. Bolus tracking in the ascending aorta with a threshold of 180 HU was performed. Immediately afterwards, ECG synchronized cardiac CT was then performed from the cardiac base to apex using retrospective gating with ECG tube current modulation. A total of 85 mL of Isovue 370 mg/mL contrast medium was administered at 5 mL/sec followed by a saline flush using a biphasic injection protocol. A tube voltage of 120 KVp was used. The patient received no medications prior to the cardiac CT. The average heart rate at the time of acquisition was 50 bpm and regular. Image Reconstruction Transaxial images were reconstructed at 0.67 mm slide thickness. Data was reviewed interactively on an advanced workstation capable of 2 and 3-dimensional displays in all conventional reconstruction formats, including multiplanar reformations, maximum intensity projections, curved multiplanar reformations, and volume rendered reconstructions. When applicable, selected routine images describing the relevant coronary anatomy and pathology were saved and sent to PACS. Complications None Technical Quality Overall image quality was good. Coronary artery opacification was adequate. Total DLP (Dose-Length Product) is 1072.0 mGy-cm. The reported value represents the total of one or more individual components during the CT acquisition of this date and at this time, and as such, the same value may appear in more than one CT report depending on the interpreting/reporting physicians. COMPARISON None FINDINGS CT Coronary Calcium Scoring LMA (Left Main Artery) = 0 LAD (Left Anterior Descending) = 0 LCX (Left Coronary Circumflex) = 0 RCA (Right Coronary Artery) = 0 Total Calcium Score = 0 using the AJ-130 method. The interpretation of the calcium heart score is based on the following continuum*: 0 = no calcified plaque detected (risk of coronary artery disease is very low ??? less than 5%) 1-10 = calcium detected in extremely minimal levels (risk of coronary diseases is still low ??? less than 10%) 11-100 = mild levels of plaque detected with certainty (mild or minimal narrowing of heart arteries is likely) 101-400 = definite,at least moderate levels of plaque detected (relatively high risk of a heart attack within 3-5 years) >401-999 = extensive levels of plaque detected (high risk of heart attack, high levels of vascular disease are present, high likelihood of at least one significant coronary narrowing) *The calcium heart score quantifies the burden of coronary calcification/plaque in the coronary arteries. The calcium heart score is not able to evaluate the presence or burden of non-calcified (i.e. soft) plaque. There is no identifiable calcification in the aortic valve, mitral annulus or mitral valve, pericardium, or myocardium. Coronary CT Angiography The coronary arterial system is right dominant. Quantitative Stenosis Grading: Left Main (LM): The left main originates normally from the left sinus of Valsalva. The LM bifurcates into the left anterior descending artery and left circumflex artery. The LM is patent with no evidence of atherosclerosis. Left Anterior Descending (LAD) and Diagonal Branches: The LAD gives off 3 diagonal branch(es). The LAD and its branches are patent with no evidence of atherosclerosis. There is no evidence of LAD-myocardial bridge. Left Circumflex (LCX) and Obtuse Marginals (OM): The LCX gives off 1 Obtuse Marginal (OM) branch(es). The LCX and its branches are patent with no evidence of atherosclerosis. Right Coronary Artery (RCA): The RCA originates normally from the right sinus of Valsalva. The RCA gives off a posterior descending artery (PDA) and posterolateral (PL) branches. The RCA and its branches are patent with no evidence of atherosclerosis. Non-Coronary Cardiac Findings: Analysis of the left ventricular (LV) structure and function was performed after 3-D reconstruction of the LV from axial images, with user-corrected automatic contouring for assessment of LV volumes and user-defined reconstruction from oblique planes for measurement of 3-D cardiac structure and function. -The left ventricle systolic function is normal. -There is no left atrial appendage filling defect. Two right pulmonary veins and two left pulmonary veins drain normally into the left atrium. -No pericardial thickening or calcification. -Central and branch pulmonary arteries in the [id number] are unremarkable. -Thoracic aorta within the visualized thoracic aortic-branches in the [id number] is unremarkable. Extracardiac Structures No significant extra-cardiac findings. Note, however, that this study is focused on the cardiac findings. IMPRESSION -Absence of coronary calcification with an Agatston score = 0 using the AJ-130 method. -No evidence of significant flow-limiting atherosclerosis of the coronary arteries. -No evidence of coronary anomalies or myocardial bridges. -CAD-RADS 0. Management recommendations per ACC/AHA guidelines*, as clinically appropriate. *Recommendations: CAD RADS 0: Reassurance. Consider non-atherosclerotic causes of chest pain. CAD RADS 1: Consider non-atherosclerotic causes of chest pain. Consider preventive therapy and risk factor modification. CAD RADS 2: Consider non-atherosclerotic causes of chest pain. Consider preventive therapy and risk factor modification, particularly for patients with nonobstructive plaque in multiple segments. CAD RADS 3: Consider further functional testing. Consider symptom-guided anti-ischemic and preventive pharmacotherapy as well as risk factor modification per published guideline statements. CAD RADS 4A: Consider further functional testing or invasive coronary angiography with revascularization per published guideline statements. Consider symptom-guided anti-ischemic and preventive pharmacotherapy as well as risk factor modification per published guideline statements. CAD RADS 4B: Invasive coronary angiography recommended with revascularization per published guideline statements. Consider symptom-guided anti-ischemic and preventive pharmacotherapy as well as risk factor modification per published guideline statements. CAD RADS 5: Consider invasive angiography and/or viability assessment with revascularization per published guideline statements. Consider symptom-guided anti-ischemic and preventive pharmacotherapy as well as risk factor modification per published guideline statements. CRITICAL RESULT None COMMUNICATION Per this written report The coronary and cardiac findings of this CCTA were reviewed, reported, and signed by Stan Rivera MD (Crew Director) Conclusion Electronically signed by : Shahana Rivera MD 02/23/2025 12:56:11
[2025-02-23 10:07] LABS: Urine Pregnancy, HCG Qual. Negative (Negative)
--- NOTE | 2025-02-23 10:40 | PC.NURSE ---
1010- Pharmacy called spoke with Devaughn Pedroza Pharmacist. Pt's allergies reported. Beef derived products, gelatin, almonds and alpha gal allergy. Nitroglycerin ordered if needed per protocol. Per Leticia Pedroza Pharmacist nitroglycerin could trigger alpha gal reaction. 1015 - Storm Shane RN spoke with A Lalo SUPERVISOR [employer] with Cardiology reported Pt has allergy to alpha gal and Nitroglycerin could trigger alpha gal reaction per pharmacist. orders received to not give Nitroglycerin. 1040- Pharmacy called spoke with Devaughn Pedroza Pharmacist- Pt ok to have Isovue [address] [facility] [id number] Lot [id number]. r/v
[2025-02-23 10:58] VITALS: BP 138/94; PULSE 51; RESP 18; O2SAT 100
[2025-02-23 11:03] VITALS: BP 99/45; PULSE 54; RESP 18; O2SAT 100
[2025-02-23 11:04] VITALS: BP 147/66; PULSE 66; RESP 18; O2SAT 100
[2025-02-23] MEDS: IOPAMIDOL-370 (76%);100ML BOTTLE 85 ML IV (11:06)
[2025-02-23] MEDS: 0.9 % SODIUM CHLORIDE 50 ML VIAL IV (11:06)
[2025-02-23] MEDS: SODIUM CHLORIDE 0.9% 10ML SYR (RAD ONLY) 10 ML IV (11:06)
[2025-02-23 11:11] VITALS: BP 118/71; PULSE 65; RESP 18; O2SAT 99
[2025-02-23 11:25] VITALS: BP 124/74; PULSE 65; RESP 18; O2SAT 99
== END 2025-02-23 23:59 | disposition home or self-care (01) ==
PROVIDERS: PCP Nurse Practitioner Family; Visit Provider Nurse Practitioner Family
DX: I49.1 Atrial premature depolarization (principal); I49.3 Ventricular premature depolarization; R94.39 Abnormal result of other cardiovascular function study
CPT/HCPCS: 75574; 80048; 81025; Q9967